=== PATIENT | male | born 1940 | race Caucasian/White ===

== ENCOUNTER 2023-12-15 18:22 | Emergency (ER) | payer OTHER, MEDICARE, SELFPAY ==
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
--- NOTE | ~2023-12-15 | CT_ITS ---
EXAMINATION: CT cervical spine wo con DATE: 12/15/2023 20:13 INDICATION: Neck pain TECHNIQUE: Computed tomography (CT) of the cervical spine was performed without intravenous contrast. The dose-length product (DLP) was 756.67 mGy-cm. Automated exposure control and iterative reconstruc tion technique were employed. COMPARISON: None FINDINGS: Bone alignment is normal. There is no fracture. There is moderate loss of intervertebral di sc space height at C5-6 and C6-7. The odontoid process is intact. There is moderate to severe osteoar thritis anteriorly at the atlantoaxial joint. There is multilevel severe facet and uncovertebral join t osteoarthritis. Prevertebral soft tissues are normal. IMPRESSION: 1. Moderate to severe cervical spondylosis without acute findings. Reviewed, dictated and finalized at location F.
--- NOTE | ~2023-12-15 | CT_ITS ---
EXAMINATION: CT brain wo con INDICATION: Head injury COMPARISON: None TECHNIQUE: Standard unenhanced head CT. The dose-length product (DLP) was 756.67 mGy-cm. The mA was a djusted according to patient size. Iterative reconstruction technique was employed. FINDINGS: No acute intraparenchymal hemorrhage. No evidence of mass lesion. No evidence of acute infa rction. There is mild periventricular and subcortical hypodensity probably related to small vessel is chemic disease. There is mild prominence of the sulci and ventricles related to cerebral atrophy. Int racranial calcified cerebral atherosclerosis is noted. No extra-axial collections. No mass effect or midline shift. The orbits and soft tissues are unremarkable. The visualized sinuses and mastoid air c ells are well aerated. IMPRESSION: 1. No acute intracranial abnormality. 2. Age related findings. Reviewed, dictated and finalized at location F.
[2023-12-15 18:30] VITALS: BP 151/87; PULSE 79; RESP 16; TEMP 36.6; O2SAT 97
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
[2023-12-15] MEDS: ACETAMINOPHEN 500 MG TABLET 1000 MG PO (19:14)
[2023-12-15 19:23] VITALS: BP 131/85; PULSE 71; RESP 15; O2SAT 98
[2023-12-15 19:24] LABS: Basophils Percent Auto 0.3 % (0.2-1.2); Eosinophils Absolute Auto 0.1 K/mm3 (0-0.3); Eosinophils Percent Auto 0.5 % (0-4.4); Hematocrit 43.4 % (42.0-52.0); Immature Granulocyte Absolute 0.07 K/mm3 (0.00-0.031); Immature Granulocyte Percent A 0.7 % (0-0.5); Lymphocytes Absolute Auto 0.95 K/mm3 (0.9-3.2); Mean Corpuscular HGB Conc 34.6 g/dl (32-36); Mean Corpuscular Hemoglobin 29.7 pg (26-34); Mean Corpuscular Volume 85.9 fl (80-100); Mean Platelet Volume 11.5 fl (7.4-10.4); Monocytes Absolute Auto 0.6 K/mm3 (0.1-0.6); Monocytes Percent Auto 5.8 % (2.6-8.5); Neutrophils Absolute Auto 8.9 K/mm3 (1.3-6.7); Neutrophils Percent Auto 83.7 % (45.5-73.1); Platelet Count Result 158 k/mm3 (150-375); Red Blood Count 5.05 M/mm3 (4.6-6.20); Red Cell Distribution Width 13.9 % (11.5-14.5); White Blood Count 10.6 K/mm3 (4.5-10.0)
[2023-12-15 19:30] LABS: Alanine Aminotransferase 21 U/L (6-50); Albumin Level 4.3 g/dL (3.5-5.1); Alkaline Phosphatase 54 U/L (38-126); Anion Gap 8 mmol/L (8-16); Aspartate Amino Transferase 28 U/L (17-59); Bilirubin,Total 0.9 mg/dL (0.2-1.3); Blood Urea Nitrogen 23 mg/dL (9-20); Calcium 9.3 mg/dL (8.4-10.2); Carbon Dioxide 25 mmol/L (22-30); Chloride 107 mmol/L (98-107); Estimated CRCL calculation 55 ml/min; Estimated Glomerular Filt Rate > 60; Glucose 95 mg/dL (65-110); Potassium 3.6 mmol/L (3.4-5.0); Sodium 140 mmol/L (137-145)
[2023-12-15] MEDS: TETANUS,DIPHTHERIA,AC PERTUSSIS ADULT (0.5 ML) BOOSTRIX IM (19:30)
[2023-12-15 21:48] VITALS: BP 137/82; PULSE 79; RESP 20; O2SAT 98
[2023-12-15] MEDS: MORPHINE SULFATE (*CRX) 4 MG/ML INJ IV PUSH (22:54)
[2023-12-15 23:02] VITALS: BP 160/80; PULSE 63; RESP 17; O2SAT 94
== END 2023-12-15 23:04 | disposition short-term general hospital (02) ==
PROVIDERS: Emergency Provider Physician Assistant; PCP Family Medicine Adolescent Medicine
DX: S22.43XA Multiple fractures of ribs, bilateral, initial encounter for closed fracture (principal); Z23 Encounter for immunization; I10 Essential (primary) hypertension; Z85.46 Personal history of malignant neoplasm of prostate; Z87.891 Personal history of nicotine dependence; M47.812 Spondylosis without myelopathy or radiculopathy, cervical region; V23.49XA Other motorcycle driver injured in collision with car, pick-up truck or van in traffic accident, initial encounter
CPT/HCPCS: 36415; 70450; 71260; 72125; 74177; 80053; 85025; 90471; 90715; 96372; 96374; 99284; 99285; A9270; J2270; Q9967

== ENCOUNTER 2024-11-26 14:27 | Emergency (ER) | payer MEDICARE, SELFPAY ==
[2024-11-26 14:32] VITALS: BP 134/81; PULSE 81; RESP 16; TEMP 36.6; O2SAT 99
[2024-11-26 15:11] LABS: Alanine Aminotransferase 15 U/L (6-50); Albumin Level 4.5 g/dL (3.5-5.1); Alkaline Phosphatase 70 U/L (38-126); Anion Gap 13 mmol/L (4-12); Aspartate Amino Transferase 17 U/L (17-59); Bilirubin,Total 1.2 mg/dL (0.2-1.3); Blood Urea Nitrogen 16 mg/dL (9-20); Calcium 9.6 mg/dL (8.4-10.2); Carbon Dioxide 19 mmol/L (22-30); Chloride 106 mmol/L (98-107); Estimated CRCL calculation 62 ml/min; Estimated Glomerular Filt Rate > 60; Glucose 108 mg/dL (65-110); Lipase 89 U/L (23-300); Sodium 138 mmol/L (137-145)
[2024-11-26 15:19] LABS: Basophils Absolute Auto 0.1 K/mm3 (0.0-0.1); Basophils Percent Auto 0.4 % (0.2-1.2); Eosinophils Absolute Auto 0.1 K/mm3 (0-0.3); Hematocrit 42.5 % (42.0-52.0); Hemoglobin 15.1 g/dL (14.0-18.0); Immature Granulocyte Absolute 0.05 K/mm3 (0.00-0.031); Immature Granulocyte Percent A 0.4 % (0-0.5); Lymphocytes Percent Auto 13.5 % (18.3-44.2); Mean Corpuscular HGB Conc 35.5 g/dl (32-36); Mean Corpuscular Hemoglobin 29.5 pg (26-34); Mean Platelet Volume 11.2 fl (7.4-10.4); Monocytes Absolute Auto 0.8 K/mm3 (0.1-0.6); Monocytes Percent Auto 6.4 % (2.6-8.5); Neutrophils Absolute Auto 9.9 K/mm3 (1.3-6.7); Neutrophils Percent Auto 78.3 % (45.5-73.1); Platelet Count Result 276 k/mm3 (150-375); Red Blood Count 5.12 M/mm3 (4.6-6.20); Red Cell Distribution Width 13.6 % (11.5-14.5); White Blood Count 12.6 K/mm3 (4.5-10.0)
[2024-11-26 15:21] LABS: Add Urine Microscopic? YES; Appearance Urine Clear (Clear); Bacteria Urine None Seen /hpf; Bilirubin Urine 1+ (Negative); Blood Urine Negative (Negative); Color Urine Dark Yellow (Yellow); Glucose Urine UA Negative (Negative); Ketones Urine Trace mg/dL (Negative); Leukocyte Esterase Ur Negative LEU/UL (Negative); Need Manual Microscopic Reviewed; Nitrate Urine Negative (Negative); Protein Urine Trace mg/dL (Negative); RBC Urine 0-2 /hpf (0-2); Specific Grav Ur 1.022 (1.001-1.035); Squamous Epithelial Cell Urine None Seen /hpf (Few); WBC Urine 0-5 /hpf (0-3)
--- NOTE | 2024-11-26 17:53 | ED.ABDPAIN ---
HPI - Abdominal Pain General Chief Complaint: Abdominal Pain Stated Complaint: abd pain Time Seen by Provider: 11/26/24 14:34 History of Present Illness HPI narrative: Patient is an 84-year-old male with history of diverticulitis who presents ER with right-sided lower abdominal pain. Worsening over last couple days. Referred here from urgent care. Currently on amoxicillin for respiratory infection. No current cough or dyspnea. No fevers or chills or sweats. Denies diarrhea or vomiting. Related Data Home Medications ?Medication ?Instructions ?Recorded ?Confirmed ?Last Taken ?Type bicalutamide 50 mg tablet (Casodex) 50 mg PO DAILY 05/03/23 07/13/24 Unknown History Allergies Allergy/AdvReac Type Severity Reaction Status Date / Time adhesive tape Allergy Mild rash Verified 07/13/24 12:51 Review of Systems Review of Systems: All systems reviewed & are unremarkable except as noted in HPI and below Constitutional: Constitutional: Reports no additional constitutional complaints Cardiovascular: Cardiovascular: Reports no additional cardiovascular complaints Respiratory: Respiratory: Reports no additional respiratory complaints Gastrointestinal: Gastrointestinal: Reports no additional gastrointestinal complaints [facility] Past Medical History Medical History (Updated 11/26/24 @ 18:25 by Jason Bruce MD) Diverticulitis Malignant neoplasm of prostate Essential (primary) hypertension Surgical History Surgical History History of right inguinal hernia repair 2003 Family History Family History Father Lung cancer Heart disease Social History Social History Smoking packs per day: 2 Smoking cigarettes per day: 40.0 Years smoked: 25 Smoking pack-years: 50.00 Smoking status: Former smoker Tobacco type: cigarettes Second hand tobacco smoke exposure: No Smoking end date: 09/27/94 Alcohol intake: current Alcohol use details: socially Substance use: never Substance use type: does not use Living arrangements: with family Occupation/Education: occupation Gender identity (if verbalized by the patient): Male Sexual Orientation (if Verbalized by the Patient): Straight or Heterosexual Spiritual care concerns: No Agree to blood products: Yes Exam Narrative: GENERAL: Well-appearing, well-nourished, and in no acute distress. HEAD: Normocephalic, atraumatic. ENT: Mucous membranes moist. CHEST: Clear to auscultation. No respiratory distress. HEART: Regular rate and rhythm. Normal peripheral pulses. ABDOMEN: Soft, TTP RLQ with guarding, nondistended. EXTREMITIES: Normal range of motion. No edema. SKIN: Warm, dry, no rash. NEURO: Alert and oriented x3. PSYCH: Normal mood and affect. Course Course Emergency Course: Imaging with diverticulitis, I suspect less likely mass given the extensive diverticula and the progression of his symptoms. Will start on oral antibiotics and have him follow-up with his PCP and potentially GI doctor. Patient verbalized understanding of diagnosis and treatment plan. Vital Signs Vital signs: Vital Signs Temperature 97.8 F 11/26/24 14:32 Pulse Rate 81 11/26/24 14:32 Respiratory Rate 16 11/26/24 14:32 Blood Pressure 134/81 11/26/24 14:32 Pulse Oximetry 99 11/26/24 14:32 Oxygen Delivery Room Air 11/26/24 14:32 Temperature 97.8 F 11/26/24 14:32 Pulse Rate 81 11/26/24 14:32 Respiratory Rate 16 11/26/24 14:32 Blood Pressure 134/81 11/26/24 14:32 Pulse Oximetry 99 11/26/24 14:32 Oxygen Delivery Room Air 11/26/24 14:32 MDM - Abdominal Pain Lab Data 11/26/24 14:53 11/26/24 14:53 Labs: Lab Results 11/26/24 Range/Units 14:53 WBC 12.6 H (4.5-10.0) K/mm3 RBC 5.12 (4.6-6.20) M/mm3 Hgb 15.1 (14.0-18.0) g/dL Hct 42.5 (42.0-52.0) % MCV 83.0 (80-100) fl MCH 29.5 (26-34) pg MCHC 35.5 (32-36) g/dl RDW 13.6 (11.5-14.5) % Plt Count 276 D (150-375) k/mm3 MPV 11.2 H (7.4-10.4) fl Immature Gran % (Auto) 0.4 (0-0.5) % Neut % (Auto) 78.3 H (45.5-73.1) % Lymph % (Auto) 13.5 L (18.3-44.2) % [place] % (Auto) 6.4 (2.6-8.5) % Eos % (Auto) 1.0 (0-4.4) % Baso % (Auto) 0.4 (0.2-1.2) % Lymph # (Auto) 1.70 (0.9-3.2) K/mm3 Morgan # (Auto) 0.8 H (0.1-0.6) K/mm3 Eos # (Auto) 0.1 (0-0.3) K/mm3 Baso # (Auto) 0.1 (0.0-0.1) K/mm3 Abs Immat Gran (auto) 0.05 H (0.00-0.031) K/mm3 Absolute Neuts (auto) 9.9 H (1.3-6.7) K/mm3 Absolute Nucleated RBC 0.000 (0.0-0.012) K/mm3 Nucleated RBC % 0.0 (0.0-0.2) % Sodium 138 (137-145) mmol/L Potassium 4.0 (3.4-5.0) mmol/L Chloride 106 (98-107) mmol/L Carbon Dioxide 19 L (22-30) mmol/L Anion Gap 13 H (4-12) mmol/L BUN 16 (9-20) mg/dL Creatinine 0.86 (0.7-1.3) mg/dL Estim Creat Clear Calc 62 ml/min Estimated GFR > 60 (59 - ) Glucose 108 (65-110) mg/dL Calcium 9.6 (8.4-10.2) mg/dL Total Bilirubin 1.2 (0.2-1.3) mg/dL AST 17 (17-59) U/L ALT 15 (6-50) U/L Alkaline Phosphatase 70 (38-126) U/L Total Protein 8.0 (6.3-8.2) g/dL Albumin 4.5 (3.5-5.1) g/dL Lipase 89 (23-300) U/L Urine Color Dark yellow (Yellow) Urine Appearance Clear (Clear) Urine pH 5.0 (5.0-9.0) Ur Specific [place] 1.022 (1.001-1.035) Urine Protein Trace (Negative) mg/dL Urine Glucose (UA) Negative (Negative) mg/dL Urine Ketones Trace H (Negative) mg/dL Ur Blood (Man) Negative (Negative) Urine Nitrate Negative (Negative) Urine Bilirubin 1+ H (Negative) Urine Urobilinogen 1.0 (<2.0) mg/dL Add Ur Microanalysis Reviewed Leukocyte Esterase Rfl Negative (Negative) LUL/UL Urine RBC 0-2 (0-2) /hpf Urine WBC 0-5 (0-3) /hpf Ur Squamous Epith Cells None seen (Few) /hpf Urine Bacteria None seen /hpf Urine Casts 6-10 Imaging Data Radiologist's impression: ITS Impressions Abdomen/Pelvis CT 11/26/24 17:56 IMPRESSION: 1. Highly suggestive diverticulitis of sigmoid colon. Possibility of a mass cannot be excluded. Further evaluation advised. 2. Multiple hypodensities in the liver unchanged from previous examination. 3. Small sliding hiatus hernia. Discharge Plan Discharge Clinical Impression: Diverticulitis Patient Disposition: Home, Self-Care Condition: Stable Instructions: Diverticulitis (ED) Additional Instructions: Return to the emergency department if you develop severe abdominal pain, severe nausea and vomiting to the point where you are unable to keep down fluids, if you develop chest pain or difficulty breathing, blood in your stool, dizziness or fainting, or if you develop any other new or concerning symptoms as these could be signs of more serious medical illness. Try to stay well hydrated. Patient Language: Danish Prescriptions: New ciprofloxacin HCl [Cipro] 500 mg tablet 500 mg PO Q12H Qty: 14 0RF metronidazole 500 mg tablet 500 mg PO Q8H Qty: 21 0RF No Action bicalutamide [Casodex] 50 mg tablet 50 mg PO DAILY acyclovir 400 mg tablet 400 mg PO TID Qty: 15 3RF lorazepam 1 mg tablet 2 mg PO QHS PRN (Reason: sleep) Qty: 60 5RF Follow-up/Referrals: Perry Oneal MD [Primary Care Provider] - 1 Week
[2024-11-26 18:40] VITALS: BP 137/82; PULSE 67; RESP 16; O2SAT 100
== END 2024-11-26 18:44 | disposition home or self-care (01) ==
PROVIDERS: Emergency Provider Emergency Medicine; PCP Family Medicine Adolescent Medicine
DX: K57.32 Diverticulitis of large intestine without perforation or abscess without bleeding (principal); I10 Essential (primary) hypertension; Z85.038 Personal history of other malignant neoplasm of large intestine; Z87.891 Personal history of nicotine dependence; K44.9 Diaphragmatic hernia without obstruction or gangrene
CPT/HCPCS: 36415; 74177; 80053; 81001; 83690; 85025; 99284; Q9967

== ENCOUNTER 2024-12-21 00:27 | Day surgery (SDC) | payer MEDICARE, SELFPAY ==
[2024-12-13 14:31] VITALS: BMI 27.6
--- OUTSIDE RECORDS SUMMARY | 2024-12-21 00:30 | XMS_ITS | Encounter Summary ---
Author Organization [facility] Address [address] [place] [address] Care Team Providers Care Municipal Clerk Name Role Phone Unavailable Primary Care Provider Unavailabl e Encounter Details Date Type Department Care Team (Late st Contact Info) Description 03/31/2019 Lab Requisition [facility] DermPath Lab [address] [place] [id number] Sterling Ribera MD [address] [place] [address] Social History Tobacco Use Types Packs/Day Years Used Date Smoking Tobacco: Never Assessed Sex and Gender Information Value Date Recorded Sex Assigned at Not on file Gender Identity Not on file Sexual Orientation Not on file documented as of this encounter Plan of Treatment Not on file documented as of this encounter Procedures Procedure Name Priority Date/Time Associated Diagnosis Comments DERMATOPATHOLOGY Routine 03/29/2019 12:0 0 AM CDT documented in this encounter Results * DERMATOPATHOLOGY (03/29/2019 12:00 AM CDT) Case Report Dermatopathology Report Case: [id number] Authorizing Provider: Sterling Ribera MD Collected: 03/29/2019 12:00 AM Pathologist: Marilu Coleman MD Received: 03/31/2019 12:54 PM Specimen: Skin, right paranasal skin 9 11:15 AM CDT DERMATOPATHOLOGY LABORATORY Final Diagnosis Specimen A. 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 11:15 AM CDT DERMATOPATHOLOGY LABORATORY Gross Description Specimen A: Received is one formalin filled container labeled with the patient's name and designated right paranasal skin. The specimen consists of a shave biopsy measuring 9x3q1ab, bisected. Jar 0. 11:15 AM T DERMATOPATHOLOGY LABORATORY Microscopic Description Specimen A. SKIN, right paranasal skin: The epidermis shows parakeratosis, full thickness disorderly maturation of keratinocytes, mitoses at different levels, and dyskeratotic cells. 11:15 AM CDT DERMATOPATHOLOGY LABORATORY Disclaimer An external and internal positive and negative controls are appropriate for the histochemical, immunohistochemical and immunofluorescence stain(s) in this case (if any), except where stated explicitly. The performance characteristics of the stain(s) cited in this report were developed and its performance characteristic determined by the Dermatopathology Laboratory at [facility], directed by Dr. Delmar Lloyd. These tests need not be, and therefore are not, approved by the [place] Food and Drug Administration. The tests are used for clinical purposes. Billing Codes Specimen Charges Stain Charges 90776 1 11:15 AM CDT DERMATOPATHOLOGY LABORATORY Embedded Images 11:15 AM CDT DERMATOPATHOLOGY LABORATORY Pathology/Cytolog y TISSUE SPECIMEN FROM SKIN / Unknown 03/29/2019 03/31/2019 12:54 PM CDT Sterling Ribera MD LAB - PATHOLOGY/CYTO LOGY ORDERABLES DERMATOPATHOLOGY LABORATORY [facility] - Department of Dermatology [address] [place] [address], [address] [place] [address], [facility] [phone] documented in this encounter Visit Diagnoses Not on filedocumented in this encounter
--- OUTSIDE RECORDS SUMMARY | 2024-12-21 00:30 | XMS_ITS | Encounter Summary ---
Author Organization [facility] Address [address] [place] [address] Care Team Providers Care Package Checker Name Role Phone Unavailable Primary Care Provider Unavailabl e Encounter Details Date Type Department Care Team (Late st Contact Info) Description 04/04/2020 Lab Requisition [facility] DermPath Lab [address] [place] [phone] Sterling Ribera MD [address] [place] [address] Social History Tobacco Use Types [...] Priority Date/Time Associated Diagnosis Comments DERMATOPATHOLOGY Routine 04/03/2020 12:0 0 AM CDT documented in this encounter Results * DERMATOPATHOLOGY (04/03/2020 12:00 AM CDT) Case Report Dermatopathology Report Case: [id number] Authorizing Provider: Sterling Ribera MD Collected: 04/03/2020 12:00 AM Ordering Location: [facility] DermPath Lab Received: 04/04/2020 11:31 AM Pathologist: Maria Esther Lloyd MD Specimen: Skin, right lateral chest wall 0 4:24 PM CDT DERMATOPATHOLOGY LABORATORY Final Diagnosis Specimen A. SKIN, right lateral chest wall: LICHEN PLANUS-LIKE KERATOSIS (BENIGN LICHENOID KERATOSIS) (L82.1) POST-INFLAMMATORY PIGMENT ALTERATION (L81.9) 0 4:24 PM CDT DERMATOPATHOLOGY LABORATORY Clinical History R/O BCC, traumatized nevus vs ISK. 0 4:24 PM CDT DERMATOPATHOLOGY LABORATORY Gross Description Specimen A: Received is one formalin filled container labeled with the patient's name and designated right lateral chest wall. The specimen consists of a shave biopsy measuring 1f7w8ha. Jar 0. 0 4:24 PM CDT DERMATOPATHOLOGY LABORATORY Microscopic Description Specimen A. SKIN, right lateral chest wall: The epidermis is mildly acanthotic. There is a lichenoid infiltrate with vacuolar changes of basilar keratinocytes and scattered necrotic keratinocytes. Sections show abundant melanin within melanophages around the superficial vascular plexus. 0 4:24 PM CDT DERMATOPATHOLOGY LABORATORY Disclaimer An external and internal positive and negative controls are appropriate for the histochemical, immunohistochemical and immunofluorescence stain(s) in this case (if any), except where stated explicitly. The performance characteristics of the stain(s) cited in this report were developed and its performance characteristic determined by the Dermatopathology Laboratory at [facility], directed by Dr. Delmar Lloyd. These tests need not be, and therefore are not, approved by the [place] Food and Drug Administration. The tests are used for clinical purposes. Billing Codes Specimen Charges Stain Charges 57120 1 0 4:24 PM CDT DERMATOPATHOLOGY LABORATORY Embedded Images 0 4:24 PM CDT DERMATOPATHOLOGY LABORATORY Pathology/Cytolog y TISSUE SPECIMEN FROM SKIN / Unknown 04/03/2020 04/04/2020 11:31 AM CDT Sterling Ribera MD LAB - PATHOLOGY/CYTO LOGY ORDERABLES DERMATOPATHOLOGY LABORATORY [facility] - Department of Dermatology Medical Imaging Technologist [place]/[address] [phone] documented in this encounter Visit Diagnoses Not on filedocumented in this encounter
--- OUTSIDE RECORDS SUMMARY | 2024-12-21 00:31 | XMS_ITS | Referral Summary ---
Author Organization [facility] Address [address] [place] [address] Phone Care Team Providers Care Manufacturing Sr Engineer Name Role Phone Perry Oneal MD Primary Care Prov ider Encounters Date Type Department Care Team Description 11/28/2024 7:45 AM NUT PACKER Lab [facility] - Lab Collection [address] [facility] Floor [address] [place] [address] Malignant neoplasm of prostate (HCC) 11/28/2024 9:45 AM NUT PACKER Infusion [facility] - Infusion [address] [facility] [address] 5 [place] [address] Malignant neoplasm of prostate (HCC) (Primary Dx); Osteopenia of multiple sites 11/28/2024 8:45 AM NUT PACKER Office Visit [facility] [address] [facility] Floor 5 [place] [id number] Stefano Erickson MD Malignant neoplasm of prostate (HCC) (Primary Dx) 11/20/2024 Results Follow-Up [facility] at [address] [phone] Osiris Calles NP 11/20/2024 10:23 AM NUT PACKER - 11/20/2024 11:59 PM NUT PACKER Hospital Encounter [id number] [place] [address] Flu-like symptoms Discharge Disposition: Discharge to home or self care 11/20/2024 10:20 AM NUT PACKER Ancillary Procedure [facility] at [address] [phone] Flu-like symptoms 11/20/2024 12:15 PM NUT PACKER Office Visit [facility] at [address] [phone] Osiris Calles NP Flu-like symptoms (Primary Dx) from Last 3 Months Allergies Active Allergy Reactions Criticality Noted Date Comments Adhesive Tape-Silicones Medications leuprolide, 3 month, (LUPRON) 22.5 mg injectionIndicatio ns:Malignant neoplasm of prostate (HCC) Inject into the shoulder, thigh, or buttocks. 05/18/20 12 Active LORazepam (ATIVAN) 1 mg tablet 3 05/09/20 18 Active cholecalciferol (cholecalciferol) 25 mcg (1,000 unit) tablet Take 1 tablet (1,000 Units total) by mouth daily 30 tablet 11 07/04/20 20 Active calcium carbonate 500 mg calcium (1,250 mg) capsule Take 1 capsule (1,250 mg total) by mouth 2 (two) times a day with meals 60 capsule 11 09/26/20 20 Active Additional Information Patient not taking.Reported on 11/20/2024 Lumigan 0.01 % ophthalmic drops 03/24/20 23 Active lansoprazole (PREVACID SOLUTAB) 15 mg disintegrating tablet Take 1 tablet (15 mg total) by mouth daily Active alendronate (FOSAMAX) 70 mg tabletIndications: Osteopenia of multiple sites,Malignant neoplasm of prostate (HCC) Take 1 tablet (70 mg total) by mouth every 7 days Take in the morning with a full glass of water, on an empty stomach, and do not take anything else by mouth or lie down for the next 30 min. 12 tablet 3 11/01/19 24 Active cyclobenzaprine (FLEXERIL) 10 mg tabletIndications: Traumatic pain Take 1 tablet (10 mg total) by mouth 3 (three) times a day as needed for muscle spasms for up to 10 days 30 tablet 12/16/19 24 Active polyethylene glycol (MIRALAX) 17 gram/dose bulk powder Take 17 g by mouth daily for 10 days 170 g 12/16/19 24 Active bicalutamide (CASODEX) 50 mg tabletIndications: metastatic prostate carcinoma Take 1 tablet (50 mg total) by mouth daily 90 tablet 3 08/21/20 24 025 Active ciprofloxacin (CIPRO) 500 mg tablet Take 1 tablet (500 mg total) by mouth 2 (two) times a day 11/28/19 Active celecoxib (CeleBREX) 200 mg capsuleIndications :Traumatic pain Take 1 capsule (200 mg total) by mouth 2 (two) times a day for 10 days 20 capsule 12/16/19 24 025 Discontinu ed(Patient Reported) amoxicillin-clavul anate (Augmentin) 875-125 mg per tablet Take 1 tablet by mouth 2 (two) times a day for 7 days 14 tablet 11/20/19 25 025 Active Problems Problem Noted Date Diagnosed Date Multiple fractures of ribs, right side, initial encounter for closed fracture 12/16/2023 Atherosclerosis of aorta 09/01/2023 Malignant neoplasm of prostate 01/20/2018 Osteopenia of multiple sites 01/20/2018 Superficial laceration 05/06/2016 Overview (12/31/2016): Superficial laceration Laceration of finger 05/06/2016 Overview (01/01/2017): Laceration of finger without foreign body without damage to nail, initial encounter Resolved Problems Problem Noted Date Diagnosed Date Resolved Date Need for prophylactic vaccin ation and inoculation against influenza 07/08/2023 07/08/2023 Immunizations Immunization Administration Dates Next Due Influenza, Trivalent, High D ose, Split, Preservative Free, Intramuscular 07/15/2017,08/21/2014 Influenza, Trivalent, IM (MDV) 07/25/2012 Influenza, Trivalent, Preservative Free, Intramu scular 07/17/2010 Moderna SARS-CoV-2 Monovalent Vaccination (12+ Y RS) 12/03/2020,10/30/2020 Pfizer Sars-Cov-2 Bivalent Vaccination (12+ YRS) 07/30/2022 Tdap 06/04/2020,05/06/2016 Social History Tobacco Use Types Packs/Day Years Used Date Smoking Tobacco: Former Smokeless Tobacco: Former Tobacco Cessation:Counseling Given: Not Answered Hunger Vital Sign Answer Date Recorded Within the past 12 months, y ou worried that your food would run out before you got the money to buy more. Never true 12/30/19 24 Within the past 12 months, t he food you bought just didn't last and you didn't have money to get more. Never true 12/30/2023 Personal Safety Answer Date Recorded Have you ever been in or are you currently in a harmful physical or emotional relationship or is someone making you feel afraid or unsafe? Denies 12/16/2023 Sex and Gender Information Value Date Recorded Sex Assigned at Not on file Legal Sex Male 4:11 AM NUT PACKER Gender Identity Male 05/27/2018 9:40 AM CDT Sexual Orientation Not on file Last Filed Vital Signs Vital Sign Reading Time Taken Comments Blood Pressure 119/71 11/28/2024 8:34 AM NUT PACKER Pulse 72 11/28/2024 8:34 AM NUT PACKER Temperature 36.4 C (97.5 F) 11/28/2024 8:34 AM NUT PACKER Respiratory Rate 18 11/28/2024 8:34 AM NUT PACKER Oxygen Saturation 98% 11/28/2024 8:34 AM NUT PACKER Inhaled Oxygen Concentration - - Weight 91.4 kg (201 lb 9.6 oz) 11/28/2024 8:34 A M NUT PACKER Height 180.3 cm (5' 11 ) 11/20/2024 10:10 AM NUT PACKER Body Mass Index 28.12 11/20/2024 10:10 AM NUT PACKER Plan of Treatment Not on file Procedures Procedure Name Priority Date/Time Associated Diagnosis Comments EGFR STAT 11/28/2024 8:21 AM NUT PACKER Malignant neoplasm of prostate (HCC) DIFFERENTIAL AUTO Routine 11/28/2024 8:2 1 AM NUT PACKER Malignant neoplasm of prostate (HCC) LACTATE DEHYDROGENASE Routine 11/28/2024 8:21 AM NUT PACKER Malignant neoplasm of prostate (HCC) CBC WITH AUTO DIFFERENTIAL Routine 11/28/2024 8:21 AM NUT PACKER Malignant neoplasm of prostate (HCC) COMPREHENSIVE METABOLIC PANEL STAT 11/28/2024 8:21 AM NUT PACKER Malignant neoplasm of prostate (HCC) PSA DIAGNOSTIC Routine 11/28/2024 8:21 AM NUT PACKER Malignant neoplasm of prostate (HCC) XR CHEST PA LATERAL 2 VIEWS Schedule SUJEY, Read SUJEY (Appt Today, Awaiting Results) 11/20/2024 10:23 AM NUT PACKER Flu-like symptoms INFLUENZA A/B, RSV, AND COVID-19 PCR Routine 11/20/2024 10:23 AM NUT PACKER Flu-like symptoms CT CHEST ABDOMEN PELVIS W CONTRAST Schedule Routine, Read Routine (OP Routine) 06/07/2024 9:42 AM CDT Malignant neoplasm of prostate (HCC) from Last 3 Months or Most Recently Relevant to Health Maintenance Results * eGFR (11/28/2024 8:21 AM NUT PACKER) eGFR 74 >=60 mL/min/1. 73 m2 Comment: Interpretive Data Reference Interval Normal >/= 90 mL/min/1.73m2 Mildly decreased* 60 - 89 mL/min/1.73m2 Mildly to moderately decreased 45 - 59 mL/min/1.73m2 Moderately to severely decreased 30 - 44 mL/min/1.73m2 Severely decreased 15 - 29 mL/min/1.73m2 Kidney Failure < 15 mL/min/1.73m2 *Relative to young adult level Estimated glomerular filtration rate is determined by the 2020 CKD-EPI equation recommended by the National Kidney Foundation (A Unifying Approach to GFR Estimation: Recommendations of the NKF-ASK Task Force on Reassessing the Inclusion of Race in Diagnosing Kidney Disease, JASN 202). The CKD-EPI equation should not be used for patients with unstable renal function and has not been validated in children and those over 70. Current interpretive data was last reviewed 2021. Blood 11/28/2024 8:21 AM NUT PACKER 11/28/2024 8:25 AM NUT PACKER us Stefano Erickson MD LAB BLOOD ORDERABLES Final Resul t [facility] Department [place] [address] * (ABNORMAL) Differential, auto (11/28/2024 8:21 AM NUT PACKER) Neutrophil abs 6.9(H) 1.5 - 6.5 K/cumm Comment:Testing performed by : [facility], [address] [place] [phone] Lymphocyte abs 1.0 0.8 - 3.3 K/cumm CERNER BJ Comment:Testing performed by : [facility], [address] [place] [phone] Monocyte abs 0.6 0.2 - 0.8 K/cumm CERNER BJ Comment:Testing performed by : [facility], [address] [place] [phone] Eosinophil abs 0.1 0.0 - 0.5 K/cumm CERMI BJ Comment:Testing performed by : [facility], [address] [place] [phone] Basophil abs 0.1 0.0 - 0.1 K/cumm [facility]ERNER BJ Comment:Testing performed by : [facility], [address] [place] [phone] Neutrophil pct 79.0 % [facility]ER BJ Comment: Interpretive Data Percent cell count reference ranges are not reported, since discordance with absolute values may lead to misinterpretation of CBC data. Current Interpretive Data was last revised on 2018. Testing performed by: [facility], [address] [place] [phone] Lymphocyte pct 11.6 % [facility]ER BJ Comment: Interpretive Data Percent cell count reference ranges are not reported, since discordance with absolute values may lead to misinterpretation of CBC data. Current Interpretive Data was last revised on 2018. Testing performed by: [facility], [address] [place] [phone] Monocyte pct 7.4 % C[facility]ER BJ Comment: Interpretive Data Percent cell count reference ranges are not reported, since discordance with absolute values may lead to misinterpretation of CBC data. Current Interpretive Data was last revised on 2018. Testing performed by: [facility], [address] [place] [phone] Eosinophil pct 1.3 % [facility] Comment: Interpretive Data Percent cell count reference ranges are not reported, since discordance with absolute values may lead to misinterpretation of CBC data. Current Interpretive Data was last revised on 2018. Testing performed by: [facility], [address] [place] [address] Basophil pct 0.7 % [facility] Comment: Interpretive Data Percent cell count reference ranges are not reported, since discordance with absolute values may lead to misinterpretation of CBC data. Current Interpretive Data was last revised on 2018. Testing performed by: [facility], [address] [place] [phone] Blood 11/28/2024 8:21 AM NUT PACKER 11/28/2024 8:24 AM NUT PACKER us Stefano Erickson MD LAB BLOOD ORDERABLES Final Resul t [facility] Department of Laboratories [place], [place] [id number] * CBC with auto differential (11/28/2024 8:21 AM NUT PACKER) WBC 8.7 3.8 - 9.9 K/cumm Comment:Testing performed by : [facility], [address] [place] [address] Hgb 14.1 13.0 - 17.5 g/dL [facility] Comment:Testing performed by : [facility], [address] [place] [address] Hct 40.7 38.9 - 50.3 % [facility] Comment:Testing performed by : [facility], [address] [place] [address] Plt 230 150 - 400 K/cumm [facility] Comment:Testing performed by : [facility], [address] [place], [place] [phone] MPV 9.1 6.8 - 10.4 fL [facility] Comment:Testing performed by : [facility], [address] [place], [place] [phone] RBC 4.83 4.30 - 5.80 M/cumm [facility] Comment:Testing performed by : [facility], [address] [place], [place] [phone] MCV 84.3 81.3 - 96.4 fL [facility] Comment:Testing performed by : [facility], [address] [place], [place] [phone] MCH 29.2 27.1 - 33.3 pg [facility] Comment:Testing performed by : [facility], [address] [place] [address] MCHC 34.6 32.3 - 35.7 g/dL [facility] Comment:Testing performed by : [facility], [address] [place], [place] [phone] RDW CV 14.5 11.1 - 14.9 % [facility] Comment:Testing performed by : [facility], [address] [place], [place] [phone] NRBC abs 0.00 0.00 - 0.01 K/cumm [facility] Comment:Testing performed by : [facility], [address] [place] [address] Blood 11/28/2024 8:21 AM NUT PACKER 11/28/2024 8:24 AM NUT PACKER us Stefano Erickson MD LAB BLOOD ORDERABLES Final Resul t [facility] Department [place] [address] * PSA diagnostic (11/28/2024 8:21 AM NUT PACKER) PSA-Total <0.02 <=6.20 ng/mL Comment: Interpretive Data AGE SEX REFERENCE INTERVAL 0 minutes-150 years Female None 0 minutes-49 years Male None 50-59 years Male 0-3.90 60-69 years Male 0-5.40 70-79 years Male 0-6.20 80-150 years Male 0-6.20 The Gini PSA Total assay procedure was used. Results from different manufacturers or methods may not be comparable. Serial testing should be performed using the same method. Current interpretive data last revised 22. Blood 11/28/2024 8:21 AM NUT PACKER 11/28/2024 8:25 AM NUT PACKER Stefano Erickson MD LAB BLOOD ORDERABLES Final Resul t Performing Organization Address City[facility] Co de Phone Number [facility] [place] [address] * Lactate dehydrogenase (LD) (11/28/2024 8:21 AM NUT PACKER) Lactate dehydrogenase (LDH) 152 100 - 250 Units/L Blood 11/28/2024 8:21 AM NUT PACKER 11/28/2024 8:25 AM NUT PACKER Stefano Erickson MD LAB BLOOD ORDERABLES Final Resul t Performing Organization Address [facility] de Phone Number [facility] [place] [address] * Comprehensive metabolic panel (11/28/2024 8:21 AM NUT PACKER) Sodium 142 135 - 145 mmol/L Potassium, pl 4.1 3.3 - 4.9 mmol/L [facility] Chloride 107 97 - 110 mmol/L [facility] CO2 27 22 - 32 mmol/L [facility] Anion gap 8 2 - 15 mmol/L [facility] BUN 18 6 - 25 mg/dL [facility] Creatinine 1.01 0.80 - 1.30 mg/dL [facility] Glucose 94 70 - 199 mg/dL [facility] Comment: Interpretive Data Fasting glucose >/= 126 mg/dl is diagnostic for diabetes. Fasting is defined as no caloric intake for at least 8 hours. Fasting glucose between 100 mg/dl to 125 mg/dl is diagnostic of prediabetes. In a patient with classic symptoms of hyperglycemia or hyperglycemic crisis, a random glucose >/= 200 mg/dl is diagnostic for diabetes. In the absence of unequivocal hyperglycemia, results should be confirmed by repeat testing. The classification and Diagnosis of Diabetes Diabetes Care 2021; 46: S19-S40. Current interpretive data was last revised 2022. Calcium 9.4 8.5 - 10.3 mg/dL [facility] Bilirubin, total 0.6 0.1 - 1.2 mg/dL [facility] Protein, pl 7.1 6.5 - 8.5 g/dL [facility] Albumin 4.0 3.5 - 5.0 g/dL [facility] Alk phos 57 40 - 130 Units/L [facility] ALT 9 7 - 55 Units/L [facility] AST 13 10 - 50 Units/L [facility] Blood 11/28/2024 8:21 AM NUT PACKER 11/28/2024 8:25 AM NUT PACKER us Stefano Erickson MD LAB BLOOD ORDERABLES Final Resul t [facility] Department [place] [address] * Influenza A/B, RSV, and COVID-19 PCR Nasopharyngeal (11/20/2024 10:23 AM NUT PACKER) Pathologist [facility] COVID-19 RNA Negative Negative [facility] Influenza A RNA [facility] Negative [facility] [place] Influenza B RNA Negative Negative [facility] [place] RSV RNA Negative Negative [facility] Comment: Interpretive data: Testing performed by [facility]. This test is performed using the [employer]) Xpert Xpress CoV-2/Flu/RSV plus assay. This is a multiplex, real-time reverse transcriptase PCR assay intended for the qualitative detection of nucleic acid from SARS-CoV-2, influenza A, influenza B, and respiratory syncytial virus. This assay has been cleared by the [place] Food and Drug administration. The performance characteristics have been verified by the [facility]. Results must be considered in the clinical context, and a negative result does not rule out infection. Interpretive Data last revised 2023 Nasopharyngeal 11/20/2024 10 :23 AM NUT PACKER 11/20/2024 3:22 PM NUT PACKER Narrative [facility] - 11/20/2024 4:32 PM NUT PACKER Is the Patient experiencing symptoms consistent with COVID?->Yes Osiris Calles NP LAB MI[facility]OLOGY - [facility] Final Result [facility] [address] [address] Department [place] [address] [facility] * XR Chest PA Lateral 2 Views (11/20/2024 10:23 AM NUT PACKER) Anatomical Region Laterality Modality Body, Chest N/A Digital Radiogra phy 11/20/2024 12:1 5 PM NUT PACKER Narrative 11/20/2024 12:17 PM NUT PACKER EXAM DESCRIPTION: XR CHEST PA LATERAL 2 VIEWS REASON FOR STUDY: cough Pt complains of cough x 8 days. No asthma,copd,heart disease. Hx prostate cancer. Former smoker quit 35 years ago smoked for 20 years 2 ppd. TECHNIQUE: Two views COMPARISON: 12/30/2023 FINDINGS: Heart size and vascularity appear normal. Aortic arch well-defined on the left. Perihilar interstitial densities with peribronchial thickening somewhat increased from previous concerning for developing peribronchial inflammatory change. No dense consolidation, effusion pneumothorax. Bony hypertrophic changes obscures the apices, noted along the thoracic spine and shoulders. IMPRESSION: Peribronchial inflammatory changes suspect. THIS IS AN ELECTRONICALLY VERIFIED FINAL REPORT 11/20/2024 12:17 PM - Electronically signed by Peter GREENE T: Report ID: [id number] Reading Location: [id number] Procedure Note Peter Bailon MD - 11/20/2024 EXAM DESCRIPTION: XR CHEST PA LATERAL 2 VIEWS REASON FOR STUDY: cough Pt complains of cough x 8 days. No asthma,copd,heart disease. Hx prostate cancer. Former smoker quit 35 years ago smoked for 20 years 2 ppd. TECHNIQUE: Two views COMPARISON: 12/30/2023 FINDINGS: Heart size and vascularity appear normal. Aortic arch well-defined on the left. Perihilar interstitial densities with peribronchial thickening somewhat increased from previous concerning for developing peribronchialinflammatory change. No dense consolidation, effusion pneumothorax. Bony hypertrophic changes obscures the apices, noted along the thoracicspine and shoulders. IMPRESSION: Peribronchial inflammatory changes suspect. THIS IS AN ELECTRONICALLY VERIFIED FINAL REPORT 11/20/2024 12:17 PM - Electronically signed by Peter Bailon M.D. RB T: Report ID: [id number] Reading Location: [place] [address] Osiris Calles NP IMG XR PROCEDURES Final Result * CT chest abdomen pelvis with contrast (06/07/2024 9:42 AM CDT) Anatomical Region Laterality Modality Body N/A Computed Tomogra phy 06/07/2024 10:4 5 AM CDT Impressions 06/07/2024 11:12 AM CDT 1. Stable appearance of multiple sclerotic lesions in the pelvis and thoracolumbar spine. No new lesion. 2. Sequela of prior trauma with healing fractures involving bilateral ribs, left T4 transverse process, the superior endplate of T3, and the sacrum. Dictated by: Elsy Kirkland MD The radiology attending physician has personally reviewed this study, and had reviewed and/or edited this written report and agrees with it. Electronically signed by: Tommy Banks M.D. Narrative 06/07/2024 11:12 AM CDT EXAMINATION: Computed tomography of the chest, abdomen and pelvis with intravenous contrast HISTORY: Prostate cancer, assess treatment response TECHNIQUE: Transaxial computed tomographic images of the chest, abdomen and pelvis were obtained with intravenous contrast according to the standard protocol after the uneventful administration of 70 mL Opti-Ray 350 intravenous contrast. COMPARISON: CT dated 12/15/2023 FINDINGS: Stable subcentimeter nodules throughout the right upper lobe are stable from 2017. Mild dependent and basilar atelectasis in both lungs. No pleural effusion or pneumothorax. The thoracic aorta is normal. The thyroid appears normal. Heart size is normal. Atherosclerotic calcifications of the coronary arteries. No pericardial effusion. Multiple hypoattenuating lesions in the liver, likely representing simple cysts or small hemangiomas. A lesion with peripheral nodular discontinuous enhancement in hepatic segment 7 likely represents a hemangioma. No suspicious hepatic lesion. The spleen, adrenal glands, gallbladder, and pancreas are normal. No biliary ductal dilatation. Small hiatal hernia. The kidneys enhance symmetrically. No hydronephrosis. The urinary bladder is normal. Prostatic calcifications. There is no abnormal wall thickening or dilatation of the bowel. Diverticulosis of the colon without diverticulitis. Normal appendix in the right lower quadrant. There is no free intraperitoneal fluid or gas. No abdominal or pelvic lymphadenopathy. Atherosclerotic calcification of the aortoiliac system. Unchanged mild dilation of the celiac axis dating to 2014. Sclerotic lesions in the pelvis and multiple thoracolumbar vertebral bodies are similar when compared to prior exam. There are multiple chronic bilateral rib fractures. Healing fracture of the left L4 transverse process. There are additional healing fractures of the superior endplate of T3 and the sacrum. Procedure Note Tommy Banks MD - 06/07/2024 EXAMINATION: Computed tomography of the chest, abdomen and pelvis with intravenous contrast HISTORY: Prostate cancer, assess treatment response TECHNIQUE: Transaxial computed tomographic images of the chest, abdomen and pelvis were obtained with intravenous contrast according to the standard protocol after the uneventful administration of 70 mL Opti-Ray 350 intravenous contrast. COMPARISON: CT dated 12/15/2023 FINDINGS: Stable subcentimeter nodules throughout the right upper lobe are stable from 2017. Mild dependent and basilar atelectasis in both lungs. No pleural effusion or pneumothorax. The thoracic aorta is normal. The thyroid appears normal. Heart size is normal. Atherosclerotic calcifications of the coronary arteries. No pericardial effusion. Multiple hypoattenuating lesions in the liver, likely representing simple cysts or small hemangiomas. A lesion with peripheral nodular discontinuous enhancement in hepatic segment 7 likely represents a hemangioma. No suspicious hepatic lesion. The spleen, adrenal glands, gallbladder, and pancreas are normal. No biliary ductal dilatation. Small hiatal hernia. The kidneys enhance symmetrically. No hydronephrosis. The urinary bladder is normal. Prostatic calcifications. There is no abnormal wall thickening or dilatation of the bowel. Diverticulosis of the colon without diverticulitis. Normal appendix in the right lower quadrant. There is no free intraperitoneal fluid or gas. No abdominal or pelvic lymphadenopathy. Atherosclerotic calcification of the aortoiliac system. Unchanged mild dilation of the celiac axis dating to 2014. Sclerotic lesions in the pelvis and multiple thoracolumbar vertebral bodies are similar when compared to prior exam. There are multiple chronic bilateral rib fractures. Healing fracture of the left L4 transverse process. There are additional healing fractures of the superior endplate of T3 and the sacrum. IMPRESSION: 1. Stable appearance of multiple sclerotic lesions in the pelvis and thoracolumbar spine. No new lesion. 2. Sequela of prior trauma with healing fractures involving bilateral ribs, left T4 transverse process, the superior endplate of T3, and the sacrum. Dictated by: Elsy Kirkland MD The radiology attending physician has personally reviewed this study, and had reviewed and/or edited this written report and agrees with it. Electronically signed by: Tommy Banks M.D. Stefano Erickson MD IMG CT PROCEDURES Final Result from Last 3 Months or Most Recently Relevant to Health Maintenance Insurance MEDICARE [facility] MEDICARE SUPPLEMENT MEDICARE FORMERLY [facility] MEDICARE BLUE CROSS MEDICARE SUPPLEMENT Advance Directives For more information, please contact: [phone] * Full Code (Latest Code Status on File) Date Activated Date Inactivated Comments 12/16/2023 2:08 AM 12/16/2023 5:30 PM Care Teams Manufacturing Sr Engineer Relationship Specialty Start Date End Date Perry Oneal MD [address] [place] [address] PCP - General 05/06/16
--- OUTSIDE RECORDS SUMMARY | 2024-12-21 00:31 | XMS_ITS | Clinical Summary ---
Author Organization [facility] Address [address] [place] [address] Care Team Providers Care Repairer Evaporator Name Role Phone Unavailable Primary Care Provider Unavailabl e Source Comments [facility],non-owned Affiliates and Associated Physician Practices is amultiple site organization consisting of ambulatory clinics and hospital sitesin [place] and [place]. This disclosure is being madepursuant to the Care Everywhere program and may not contain all information available regarding this patient. Last updated 18.[facility] Social History Tobacco Use Types Packs/Day Years Used Date Smoking Tobacco: Never Assessed Sex and Gender Information Value Date Recorded Sex Assigned at Not on file Gender Identity Not on file Sexual Orientation Not on file Plan of Treatment Health Maintenance Due Date Last Done Comments MEDICARE AWV 12 MONTHS 1942 DTAP/TDAP/TD VACCINES (1 - Tdap) 1961 PNEUMOCOCCAL VACCINE 50+ (1 of 1 - PCV) 1992 ZOSTER VACCINE (1 of 2) 1992 Respiratory Syncytial Virus (RSV) Vaccine Pt: or over 60 yrs (1 - 1-dose 75+ series) 2017 COVID-19 VACCINE ( - 2023-2 5 season) 2024 INFLUENZA VACCINE (#1) 2024 DEPRESSION SCREENING 09/27/2024 HEPATITIS B VACCINE Aged Out No longe r eligible based on patient's age to complete this topic HIB VACCINE Aged Out No longer eligi ble based on patient's age to complete this topic HPV VACCINE Aged Out No longer eligi ble based on patient's age to complete this topic MENINGOCOCCAL (Group B) VACC INE SHARED DECISION-MAKING Aged Out No longer eligibl e based on patient's age to complete this topic MENINGOCOCCAL GROUPS A/C/Y/W VACCINE Aged Out No longer eligible b ased on patient's age to complete this topic
--- OUTSIDE RECORDS SUMMARY | 2024-12-21 00:31 | XMS_ITS | Encounter Summary ---
Author Organization [facility] Address [address] [place] [address] Care Team Providers Care Pressure Vessel Inspector Name Role Phone Perry Oneal MD Primary Care Prov ider Encounter Details Date Type Department Care Team (Late st Contact Info) Description 11/20/2024 Results Follow-Up [facility] at [address] [address] Osiris Calles, JAI [address] [place] [address] [address] [place] [address] Social History Tobacco Use Types Packs/Day Years Used Date Smoking Tobacco: Former Smokeless Tobacco: Former Hunger Vital Sign Answer Date Recorded Within [...] on file Legal Sex Male 4:11 AM CHIEF ENGINEERING DIVISION Gender Identity Male 05/27/2018 9:40 AM CDT Sexual Orientation Not on file documented as of this encounter Miscellaneous Notes * Result Encounter Note - Osiris Calles NP - 11/20/2024 4:34 PM CST Please notify patient of negative covid-19, FLU and RSV results. If symptoms persist past 10-14 days or worsen at anytime follow up with the [facility] or your Primary Care Provider. F ENGINEERING DIVISION documented in this encounter Plan of Treatment Not on file documented as of this encounter Visit Diagnoses Not on filedocumented in this encounter Additional Health Concerns Infection Onset Date Last Indicated Resolved Time COVID: Suspected 11/20/2024 11/20/2024 11/20/2024 4:33 PM CHIEF ENGINEERING DIVISION documented as of this encounter Care Teams Pressure Vessel Inspector Relationship Specialty Start Date End Date Perry Oneal MD [address] [place] [address] PCP - General 05/06/16 documented as of this encounter
--- OUTSIDE RECORDS SUMMARY | 2024-12-21 00:31 | XMS_ITS | Continuity of Care Document ---
Author Organization [facility] Address [address] [place] [address] Phone Care Team Providers Care Kiln Furniture Caster Name Role Phone Renzo Marrufo Unavailable Unavailable Procedures Procedure Date Eye Exam & Treatment Refraction Eye Exam, New Patient Refraction Advance Directives Directive Yes / No Effective Date File Name No Information Encounters Encounter Description Practice Location Reason(s) For Visit Diagnoses Date Provider Providers Copied on Encounter [facility], [address] [place] [address] [address], [place], [place], [id number], tel:[phone] [facility] No Information 1-201 0 Krishnasamy Renzo. [address], [place], [address], [place]. tel:[phone] [facility], [address] [place] [address] [address], [place], [place], [id number], tel:[phone] [facility] No Information 9-200 9 Krishnasamy Renzo. [address] [facility] [address], [place], [address], [place]. tel:[phone] Family History Family Member Type Diagnosis Age At Onset No Information Payers Payer name Insurance type Covered constitution party ID Authoriza tion(s) [place] [id number] Social History Type Description Quantity Date Captured Comments Sex Male Smoking Status No Information Chief Complaint And Reason For Visit No Information Reason For Referral Reason For Referral No Information History Of Present Illness Encounter Date Complaint History Of Prese nt Illness No Information Functional Status Date Functional Assessmen t No Information Instructions Date Instruction Additional Infor mation No Information Assessments Type Assessment Date No Information Patient Care Teams Name Effective Dates (start - stop) Status Members No Information
--- OUTSIDE RECORDS SUMMARY | 2024-12-21 00:31 | XMS_ITS | Encounter Summary ---
Author Organization [facility] Healthcare Address [address] [place] [address] Care Team Providers Care Mig Welder Name Role Phone Perry Oneal MD Primary Care Prov ider Encounter Details Date Type Department Care Team (Late st Contact Info) Description 12/16/[address] [facility] Surgeon [address] [place] [address] Marilu Santiago MD [address] [facility] [address] [place], [place] [id number] Social History Tobacco Use Types Packs/Day Years Used Date Smoking Tobacco: Former Smokeless Tobacco: Former Personal Safety Answer Date Recorded Have you ever been in or are you currently in a harmful physical or emotional relationship or is someone making you feel afraid or unsafe? Denies 12/16/2023 Sex and Gender Information Value Date Recorded Sex Assigned at Not on file Legal Sex Male 4:11 AM VOCAL MUSIC TEACHER Gender Identity Male 05/27/2018 9:40 AM CDT Sexual Orientation Not on file documented as of this encounter Plan of Treatment Not on file documented as of this encounter Visit Diagnoses Not on filedocumented in this encounter Additional Health Concerns Infection Onset Date Last Indicated Resolved Time COVID: Suspected 11/20/2024 11/20/2024 11/20/2024 4:33 PM VOCAL MUSIC TEACHER documented as of this encounter Care Teams Mig Welder Relationship Specialty Start Date End Date Perry Oneal MD [address] [place] [address] PCP - General 05/06/16 documented as of this encounter
--- OUTSIDE RECORDS SUMMARY | 2024-12-21 00:31 | XMS_ITS ---
Author Organization [facility] Address [address] [place] [address] Phone Care Team Providers Care Energy And Conservation Technician Name Role Phone Perry Oneal MD Primary Care Prov ider Active Problems Problem Noted Date Diagnosed Date Multiple fractures of ribs, right side, initial encounter for closed fracture 12/16/2023 Atherosclerosis of aorta 09/01/2023 Malignant neoplasm of prostate 01/20/2018 Osteopenia of multiple sites 01/20/2018 Superficial laceration 05/06/2016 Overview (12/31/2016): Superficial laceration Laceration of finger 05/06/2016 Overview (01/01/2017): Laceration of finger without foreign body without damage to nail, initial encounter Current Treatment and Therapy Plans Casodex* Plan Start Date:08/28/2004 Plan Provider:Stefano Erickson MD Linked Problems Malignant neoplasm of prosta te (HCC) Treatment Medications Current Day (Day 1, Cycle 15 - Planned for 08/26/2018) bicalutamide (CASODEX) bicalutamide (CASODEX) 50 mg tablet denosumab (PROLIA) Injection* Plan Start Date:11/28/2024 Plan Provider:Stefano Erickson MD Linked Problems Malignant neoplasm of prosta te (HCC)Osteopenia of multiple sites Treatment Medications No medications scheduled. Leuprolide Every 3 Months - Prostate* Plan Start Date:03/10/2018 Plan Provider:Stefano Erickson MD Linked Problems Malignant neoplasm of prosta te (HCC) Treatment Medications Current Day (Day 1 , Cycle 31 - Planned for 02/20/2025) Next Day (Day 1, Cycle 32 - Planned for 05/15/2025) leuprolide (3 month) (ELIGARD)leuprolide (3 month) (LUPRON)leuprolide (ELIGARD) leuprolide (3 month) (ELIGARD) subcutaneous injection 22.5 mg leuprolide (3 month) (ELIGARD) subcutaneous injection 22.5 mg Past Treatment and Therapy Plans Oncology Supportive Care Plan Name Start Date Discontinue Date Treatment Medications Discontinue Reason Plan Provider ZOLEDRONIC ACID (ZOMETA) INFUSION 03/10/2018 03/10/2018 No medications scheduled. Therapy Complete Stefano Erickson MD Specialty Infusion Treatment Plan Name Start Date Discontinue Date Treatment Medications Discontinue Reason Plan Provider ZOLEDRONIC ACID (ZOMETA) INFUSION 03/10/2018 06/02/2018 No medications scheduled. Therapy Complete Stefano Erickson MD Lifetime Dose Tracking * Chemical Lifetime Dose Automatic Entry Manual Entr y DLP 1,522 mGycm 1,522 mGycm 0 mGycm Resolved Problems Problem Noted Date Diagnosed Date Resolved Date Need for prophylactic vaccin ation and inoculation against influenza 07/08/2023 07/08/2023
--- OUTSIDE RECORDS SUMMARY | 2024-12-21 00:31 | XMS_ITS | Clinical Summary ---
Author Organization [facility] Address [address] [place] [address] Phone Care Team Providers Care Supervisor Bakery Sanitation Name Role Phone Perry Oneal MD Primary Care Prov ider Allergies Active Allergy Reactions Criticality Noted Date [...] mouth 2 (two) times a day 11/28/19 25 Active celecoxib (CeleBREX) 200 mg capsuleIndications :Traumatic [...] ation and inoculation against influenza 07/08/2023 07/08/2023 Encounters Date Type Department Care Team Description 11/28/2024 9:45 AM VOCATIONAL TRAINING TEACHER Infusion [facility] - Infusion [address] [place] [address] Malignant neoplasm of prostate (HCC) (Primary Dx); Osteopenia of multiple sites 11/28/2024 8:45 AM VOCATIONAL TRAINING TEACHER Office Visit [facility] Oncology [address] [facility] Floor 5 [place] [address] Stefano Erickson MD Malignant neoplasm of prostate (HCC) (Primary Dx) 11/28/2024 7:45 AM VOCATIONAL TRAINING TEACHER Lab [facility] - Lab Collection [address] [place] [address] Malignant neoplasm of prostate (HCC) 11/20/2024 12:15 PM VOCATIONAL TRAINING TEACHER Office Visit [facility] Con[facility]ient [facility] at [address] [phone] Osiris Calles NP Flu-like symptoms (Primary Dx) 11/20/2024 10:23 AM VOCATIONAL TRAINING TEACHER - 11/20/2024 11:59 PM VOCATIONAL TRAINING TEACHER Hospital Encounter [address] [address] Flu-like symptoms Discharge Disposition: Discharge to home or self care 11/20/2024 10:20 AM VOCATIONAL TRAINING TEACHER Ancillary Procedure [facility] Imaging at [address] [phone] Flu-like symptoms 11/20/2024 Results Follow-Up [facility] at [address] [phone] Osiris Calles NP from Last 3 Months Immunizations Immunization Administration Dates Next Due Influenza, Trivalent, High D ose, Split, Preservative Free, Intramuscular 07/15/2017,08/21/2014 Influenza, Trivalent, IM (MDV) 07/25/2012 Influenza, Trivalent, Preservative Free, Intramu scular 07/17/2010 Moderna SARS-CoV-2 Monovalent Vaccination (12+ Y RS) 12/03/2020,10/30/2020 Pfizer Sars-Cov-2 Bivalent Vaccination (12+ YRS) 07/30/2022 Tdap 06/04/2020,05/06/2016 Medical History Medical History Date Comments Malignant neoplasm of prostate (HCC) Cancer, prostate Hypertension Hypertension Glaucoma Family History Relation Name Status Comments Brother Alive Father Mother Sister Alive Social History Tobacco Use Types Packs/Day Years [...] on file Legal Sex Male 4:11 AM VOCATIONAL TRAINING TEACHER Gender Identity Male 05/27/2018 9:40 AM CDT Sexual Orientation Not on file Obstetrics History Last Filed Vital Signs Vital Sign Reading Time Taken Comments Blood Pressure 119/71 11/28/2024 8:34 AM VOCATIONAL TRAINING TEACHER Pulse 72 11/28/2024 8:34 AM VOCATIONAL TRAINING TEACHER Temperature 36.4 C (97.5 F) 11/28/2024 8:34 AM VOCATIONAL TRAINING TEACHER Respiratory Rate 18 11/28/2024 8:34 AM VOCATIONAL TRAINING TEACHER Oxygen Saturation 98% 11/28/2024 8:34 AM VOCATIONAL TRAINING TEACHER Inhaled Oxygen Concentration - - Weight 91.4 kg (201 lb 9.6 oz) 11/28/2024 8:34 A M VOCATIONAL TRAINING TEACHER Height 180.3 cm (5' 11 ) 11/20/2024 10:10 AM VOCATIONAL TRAINING TEACHER Body Mass Index 28.12 11/20/2024 10:10 AM VOCATIONAL TRAINING TEACHER Plan of Treatment Health Maintenance Due Date Last Done Comments Depression Screening 1942 Hepatitis B Screening 1960 Pneumococcal vaccine 65+ (1 of 2 - PCV) 1961 Zoster Vaccine (1 of 2) 1961 Well Visit 65+ 2007 Covid-19 Vaccine (4 - 2023-2 5 season) 2024 07/30/2022, 12/03/2020, 10/30/2020 Influenza Vaccine (#1) 2024 7, 08/21/2014, 07/25/2012, Additional history exists Fall Risk Assessment 12/15/2024 12/16/2023 DTaP/Tdap/Td Vaccine (3 - Td or Tdap) 06/04/2030 06/04/2020, 05/06/2016 Abdominal Aortic Aneurysm (A AA) Screen Completed 06/07/2024, 07/23/2022, 2016, Additional history exists Procedures Procedure Name Priority Date/Time Associated Diagnosis Comments EGFR STAT 11/28/2024 8:21 AM VOCATIONAL TRAINING TEACHER Malignant neoplasm of prostate (HCC) DIFFERENTIAL AUTO Routine 11/28/2024 8:2 1 AM VOCATIONAL TRAINING TEACHER Malignant neoplasm of prostate (HCC) LACTATE DEHYDROGENASE Routine 11/28/2024 8:21 AM VOCATIONAL TRAINING TEACHER Malignant neoplasm of prostate (HCC) CBC WITH AUTO DIFFERENTIAL Routine 11/28/2024 8:21 AM VOCATIONAL TRAINING TEACHER Malignant neoplasm of prostate (HCC) COMPREHENSIVE METABOLIC PANEL STAT 11/28/2024 8:21 AM VOCATIONAL TRAINING TEACHER Malignant neoplasm of prostate (HCC) PSA DIAGNOSTIC Routine 11/28/2024 8:21 AM VOCATIONAL TRAINING TEACHER Malignant neoplasm of prostate (HCC) XR CHEST PA LATERAL 2 VIEWS Schedule SUJEY, Read SUJEY (Appt Today, Awaiting Results) 11/20/2024 10:23 AM VOCATIONAL TRAINING TEACHER Flu-like symptoms INFLUENZA A/B, RSV, AND COVID-19 PCR Routine 11/20/2024 10:23 AM VOCATIONAL TRAINING TEACHER Flu-like symptoms CT CHEST ABDOMEN PELVIS W CONTRAST Schedule Routine, Read Routine (OP Routine) 06/07/2024 9:42 AM CDT Malignant neoplasm of prostate (HCC) from Last 3 Months or Most Recently Relevant to Health Maintenance Results * eGFR (11/28/2024 8:21 AM VOCATIONAL TRAINING TEACHER) eGFR 74 >=60 mL/min/1. 73 m2 Comment: [...] of Race in Diagnosing Kidney Disease, JASN 2020). The CKD-EPI equation should not be used for patients with unstable renal function and has not been validated in children and those over 70. Current interpretive data was last reviewed 2021. Blood 11/28/2024 8:21 AM VOCATIONAL TRAINING TEACHER 11/28/2024 8:25 AM VOCATIONAL TRAINING TEACHER us Stefano Erickson MD LAB BLOOD ORDERABLES Final Resul t [facility] Department [place] [address] * (ABNORMAL) Differential, auto (11/28/2024 8:21 AM VOCATIONAL TRAINING TEACHER) Neutrophil abs 6.9(H) 1.5 - 6.5 K/cumm Comment:Testing performed by : [facility] Heme Lab, [address] [place] [phone] Lymphocyte abs 1.0 0.8 - 3.3 K/cumm [facility] Comment:Testing performed by : [facility], [address] [place] [phone] Monocyte abs 0.6 0.2 - 0.8 K/cumm [facility] REYEZ Comment:Testing performed by : [facility], [address] [place] [phone] Eosinophil abs 0.1 0.0 - 0.5 K/cumm [facility] REYEZ Comment:Testing performed by : [facility], [address] [place] [phone] Basophil abs 0.1 0.0 - 0.1 K/cumm CERNER BJ Comment:Testing performed by : [facility], [address] [place] [address] Neutrophil pct 79.0 % [facility] Comment: Interpretive Data Percent cell count reference ranges are not reported, since discordance with absolute values may lead to misinterpretation of CBC data. Current Interpretive Data was last revised on 2018. Testing performed by: [facility], [address] [place] [address] Lymphocyte pct 11.6 % [facility] Comment: Interpretive Data Percent cell count reference ranges are not reported, since discordance with absolute values may lead to misinterpretation of CBC data. Current Interpretive Data was last revised on 2018. Testing performed by: [facility], [address] [place] [address] Monocyte pct 7.4 % [facility] Comment: Interpretive Data Percent cell count reference ranges are not reported, since discordance with absolute values may lead to misinterpretation of CBC data. Current Interpretive Data was last revised on 2018. Testing performed by: [facility], [address] [place], [place] [id number] Eosinophil pct 1.3 % [facility] Comment: Interpretive Data Percent cell count reference ranges are not reported, since discordance with absolute values may lead to misinterpretation of CBC data. Current Interpretive Data was last revised on 2018. Testing performed by: [facility]e [facility], [address] [place] [phone] Basophil pct 0.7 % [facility] Comment: Interpretive Data Percent cell count reference ranges are not reported, since discordance with absolute values may lead to misinterpretation of CBC data. Current Interpretive Data was last revised on 2018. Testing performed by: [facility], [address] [place] [phone] Blood 11/28/2024 8:21 AM VOCATIONAL TRAINING TEACHER 11/28/2024 8:24 AM VOCATIONAL TRAINING TEACHER us Stefano Erickson MD LAB BLOOD ORDERABLES Final Resul t [facility] Department [place] [address] * CBC with auto differential (11/28/2024 8:21 AM VOCATIONAL TRAINING TEACHER) WBC 8.7 3.8 - 9.9 K/cumm Comment:Testing performed by : [facility] Heme Lab, [address] [place] [address] Hgb 14.1 13.0 - 17.5 g/dL CERMI REYEZ Comment:Testing performed by : [facility] Heme Lab, [address] [place] [address] Hct 40.7 38.9 - 50.3 % CERMI REYEZ Comment:Testing performed by : [facility] Lab, [address] [place] [address] Plt 230 150 - 400 K/cumm O[facility]AR REYEZ Comment:Testing performed by : [facility]e Lab, [address] [place] [address] MPV 9.1 6.8 - 10.4 fL CERMI BJ Comment:Testing performed by : [facility] Heme Lab, [address] [place] [address] RBC 4.83 4.30 - 5.80 M/cumm CERMI REYEZ Comment:Testing performed by : [facility]e Lab, [address] [place] [address] MCV 84.3 81.3 - 96.4 fL CERMI BJ Comment:Testing performed by : [facility]e Lab, [address] [place] [address] MCH 29.2 27.1 - 33.3 pg CERMI BJ Comment:Testing performed by : [facility] Lab, [address] [place] [address] MCHC 34.6 32.3 - 35.7 g/dL CERMI BJ Comment:Testing performed by : [facility] Lab, [address] [place] [address] RDW CV 14.5 11.1 - 14.9 % [facility] Comment:Testing performed by : [facility], [address] [place] [phone] NRBC abs 0.00 0.00 - 0.01 K/cumm [facility] Comment:Testing performed by : [facility], [address] [place] [phone] Blood 11/28/2024 8:21 AM VOCATIONAL TRAINING TEACHER 11/28/2024 8:24 AM VOCATIONAL TRAINING TEACHER Stefano Erickson MD LAB BLOOD ORDERABLES Final Resul t Performing Organization Address [facility] de Phone Number [facility] Department [place] [address] * PSA diagnostic (11/28/2024 8:21 AM VOCATIONAL TRAINING TEACHER) PSA-Total <0.02 <=6.20 ng/mL Comment: Interpretive Data [...] last revised 22. Blood 11/28/2024 8:21 AM VOCATIONAL TRAINING TEACHER 11/28/2024 8:25 AM VOCATIONAL TRAINING TEACHER Stefano Erickson MD LAB BLOOD ORDERABLES Final Resul t Performing Organization Address [facility] Co de Phone Number [facility] [place] [address] * Lactate dehydrogenase (LD) (11/28/2024 8:21 AM VOCATIONAL TRAINING TEACHER) Lactate dehydrogenase (LDH) 152 100 - 250 Units/L Blood 11/28/2024 8:21 AM VOCATIONAL TRAINING TEACHER 11/28/2024 8:25 AM VOCATIONAL TRAINING TEACHER us Stefano Erickson MD LAB BLOOD ORDERABLES Final Resul t [facility] Department [place] [address] * Comprehensive metabolic panel (11/28/2024 8:21 AM VOCATIONAL TRAINING TEACHER) Pathologist [facility] Sodium 142 135 - 145 mmol/L Potassium, pl 4.1 3.3 - 4.9 mmol/L [facility] Chloride 107 97 - 110 mmol/L [facility] CO2 27 22 - 32 mmol/L [facility] Anion gap 8 2 - 15 mmol/L [facility] BUN 18 6 - 25 mg/dL [facility] Creatinine 1.01 0.80 - 1.30 mg/dL [facility] Glucose 94 70 - 199 mg/dL [facility] Comment: Interpretive Data Fasting glucose >/= 126 [...] 2022. Calcium 9.4 8.5 - 10.3 mg/dL [facility] Bilirubin, total 0.6 0.1 - 1.2 mg/dL [facility] Protein, pl 7.1 6.5 - 8.5 g/dL [facility] Albumin 4.0 3.5 - 5.0 g/dL [facility] Alk phos 57 40 - 130 Units/L [facility] ALT 9 7 - 55 Units/L [facility] AST 13 10 - 50 Units/L [facility] Blood 11/28/2024 8:21 AM VOCATIONAL TRAINING TEACHER 11/28/2024 8:25 AM VOCATIONAL TRAINING TEACHER Stefano Erickson MD LAB BLOOD ORDERABLES Final Resul t Performing Organization Address City/[facility] Co de Phone Number [facility] Department [place] [address] * Influenza A/B, RSV, and COVID-19 PCR Nasopharyngeal (11/20/2024 10:23 AM VOCATIONAL TRAINING TEACHER) Pathologist [facility] COVID-19 RNA Negative Negative Influenza A RNA Negative Negative [facility] Influenza B RNA Negative Negative [facility] RSV RNA Negative Negative [facility] Comment: Interpretive data: Testing performed by [facility]. This test is performed using the [employer] Xpert Xpress CoV-2/Flu/RSV plus assay. This is a multiplex, real-time reverse transcriptase PCR assay intended for the qualitative detection of nucleic acid from SARS-CoV-2, influenza A, influenza B, and respiratory syncytial virus. This assay has been cleared by the [place] Food and Drug administration. The performance characteristics have been verified by the [facility]. Results must be considered in the clinical context, and a negative result does not rule out infection. Interpretive Data last revised 2023 Nasopharyngeal 11/20/2024 10 :23 AM VOCATIONAL TRAINING TEACHER 11/20/2024 3:22 PM VOCATIONAL TRAINING TEACHER Narrative [facility] - 11/20/2024 4:32 PM VOCATIONAL TRAINING TEACHER Is the Patient experiencing symptoms consistent with COVID?->Yes Osiris Calles NP LAB MICROBIOLOGY - GENERAL ORDCinda JUNE Final Result Performing Organization Address City/[facility]/ZIP Co de Phone Number [facility] RODRIGUE[facility] [address] Department [place] [address] * XR Chest PA Lateral 2 Views (11/20/2024 10:23 AM VOCATIONAL TRAINING TEACHER) Anatomical Region Laterality Modality Body, Chest N/A Digital Radiogra phy 11/20/2024 12:1 5 PM VOCATIONAL TRAINING TEACHER Narrative 11/20/2024 12:17 PM VOCATIONAL TRAINING TEACHER EXAM DESCRIPTION: XR CHEST PA LATERAL 2 [...] signed by Peter GREENE T: Report ID: [id number] Reading Location: [id number] Procedure Note Peter Bailon MD - 11/20/2024 [...] Peter Bailon M.D. RB T: Report ID: [id number] Reading Location: [id number] Osiris Calles NP IMG XR PROCEDURES Final [...] Recently Relevant to Health Maintenance Insurance MEDICARE BLUE CROSS MEDICARE SUPPLEMENT MEDICARE [facility] MEDICARE [facility] MEDICARE SUPPLEMENT Advance Directives For more information, please contact: [phone] * Full Code (Latest Code Status on File) Date Activated Date Inactivated Comments 12/16/2023 2:08 AM 12/16/2023 5:30 PM Care Teams Supervisor Bakery Sanitation Relationship Specialty Start Date End Date Perry Oneal MD [address] [place] [address] PCP - General 05/06/16
[2024-12-21 07:38] VITALS: BP 152/91; PULSE 64; RESP 20; TEMP 35.4; O2SAT 99; BMI 28.2
[2024-12-21] MEDS: LACTATED RINGERS 1,000 ML 150 ML IV CONT (08:04)
--- NOTE | 2024-12-21 08:56 | P.PNAN_ITS ---
Anes - Initial Pre Proc Eval Procedure: Operation Date: 12/21/24 09:00 Proposed Procedures p Colonoscopy - Richie Harris MD Date/Time: 12/21/24 08:56 Surgeon: Richie Harris MD Pre Op Diagnosis: Left lower quadrant abdominal swelling, mass and l Patient Data Age: 84 Gender: M Height: 1.8 m Weight: 91.9 kg Last Vital Signs Temp 95.7 F L 12/21/24 07:38 Pulse 64 12/21/24 07:38 Resp 20 12/21/24 07:38 BP 152/91 H 12/21/24 07:38 Pulse Ox 99 12/21/24 07:38 O2 Del Method Room Air 12/21/24 07:38 Allergies Allergy/AdvReac Type Severity Reaction Status Date / Time adhesive tape Allergy Mild rash Verified 12/21/24 07:43 Home Medications ?Medication ?Instructions ?Recorded ?Confirmed ?Type bicalutamide 50 mg tablet (Casodex) 50 mg PO DAILY 05/03/23 12/21/24 History lorazepam 1 mg tablet 2 mg (2 x 1 mg) PO QHS PRN sleep 09/18/24 12/21/24 Rx #60 tabs bimatoprost 0.01 % eye drops 1 drp ophthalmic (eye) QPM 12/11/24 12/21/24 History (Lumigan) lansoprazole 15 mg capsule,delayed 15 mg PO DAILY 12/13/24 12/21/24 History release (Acid Hotel Maintenance Engineer (lansoprazole)) leuprolide (3 month) 22.5 mg (3 22.5 mg subcut [id number] 12/13/24 12/21/24 History month) subcutaneous syringe Patient hx anesthesia problems: none Family hx anesthesia problems: none Results Review: All pre-operative results and documents have been reviewed as part of the pre- operative evaluation. COUNTS INCLUDE 234 BEDS AT THE [facility] Past Medical History Medical History Diverticulitis Malignant neoplasm of prostate Essential (primary) hypertension Surgical History Surgical History History of right inguinal hernia repair 2003 Family History Family History Father Lung cancer Heart disease Social History Social History Smoking packs per day: 2 Smoking cigarettes per day: 40.0 Years smoked: 25 Smoking pack-years: 50.00 Smoking status: Former smoker Tobacco type: cigarettes Second hand tobacco smoke exposure: No Smoking end date: 09/27/94 Alcohol intake: unknown Alcohol use details: socially Substance use: current Substance use type: sedatives Living arrangements: with family Occupation/Education: occupation Gender identity (if verbalized by the patient): Male Sexual Orientation (if Verbalized by the Patient): Straight or Heterosexual Spiritual care concerns: No Agree to blood products: Yes Anes - Eval Final PreProcedure Day of Procedure 12/21/24 08:56 Patient weight: normal Heart: regular rate and rhythm Lungs: clear to auscultation Airway: Mallampati scale class II Neurological: alert and oriented Last oral intake: >/= 8 hours ASA classification: III Emergent: no Anesthetic plan: proceed Anesthesia type and monitoring: general GIVS and standard monitoring Results Review: All pre-operative results and documents have been reviewed as part of the pre- operative evaluation. Informed Consent: The patient's anesthetic plan and its attendant risks and benefits were discussed with the patient/family/POA. Questions were solicited and answers provided to the satisfaction of the patient/family/POA.
--- NOTE | 2024-12-21 09:48 | PM.IMHP ---
H&P: HPI History of Present Illness Date/Time: 12/21/24 09:48 Chief Complaint: Recurrent diverticulitis Narrative: the patient went approximately 4 weeks ago to the emergency room for an episode of left lower quadrant abdominal pain. Diverticulitis was diagnosed on clinical and CT grounds. He received 2 weeks of antibiotics and is completely asymptomatic right now. Review of Systems Review of Systems: All systems reviewed & are unremarkable except as noted in HPI and below PMFSH Past Medical History Medical History Diverticulitis Malignant neoplasm of prostate Essential (primary) hypertension Surgical History Surgical History History of right inguinal hernia repair 2003 Family History Family History Father Lung cancer Heart disease Social History Social History Smoking packs per day: 2 Smoking cigarettes per day: 40.0 Years smoked: 25 Smoking pack-years: 50.00 Smoking status: Former smoker Tobacco type: cigarettes Second hand tobacco smoke exposure: No Smoking end date: 09/27/94 Alcohol intake: unknown Alcohol use details: socially Substance use: current Substance use type: sedatives Living arrangements: with family Occupation/Education: occupation Gender identity (if verbalized by the patient): Male Sexual Orientation (if Verbalized by the Patient): Straight or Heterosexual Spiritual care concerns: No Agree to blood products: Yes Meds Home Medications and Allergies Home Medications ?Medication ?Instructions ?Recorded ?Confirmed ?Type bicalutamide 50 mg tablet (Casodex) 50 mg PO DAILY 05/03/23 12/21/24 History lorazepam 1 mg tablet 2 mg (2 x 1 mg) PO QHS PRN sleep 09/18/24 12/21/24 Rx #60 tabs bimatoprost 0.01 % eye drops 1 drp ophthalmic (eye) QPM 12/11/24 12/21/24 History (Lumigan) lansoprazole 15 mg capsule,delayed 15 mg PO DAILY 12/13/24 12/21/24 History release (Acid Records Administrator (lansoprazole)) leuprolide (3 month) 22.5 mg (3 22.5 mg subcut [id number] 12/13/24 12/21/24 History month) subcutaneous syringe Allergies Allergy/AdvReac Type Severity Reaction Status Date / Time adhesive tape Allergy Mild rash Verified 12/21/24 07:43 Vital Signs Vital Signs - 24 hr 12/21/24 07:38 Temperature 95.7 F L Pulse Rate 64 Respiratory Rate 20 Blood Pressure 152/91 H Pulse Oximetry 99 Oxygen Delivery Room Air Exam Const: General: cooperative and healthy appearing Resp: Effort & Inspection: normal respiratory effort and able to speak in complete sentences Auscultation: clear to auscultation bilaterally Cardio: Rate: regular rate Rhythm: regular rhythm GI: Inspection: normal to inspection GI Palp: No No hepatosplenomegaly present Auscultation: normal bowel sounds Rectal Exam: deferred Skin: General skin exam: normal color Psych: Appearance: grossly normal Mental Status: mental status grossly normal Assessment and Plan Assessment and plan (1) Abdominal mass, left lower quadrant: Code(s): R19.04 - Left lower quadrant abdominal swelling, mass and lump Status: Acute Assessment and Plan: The patient most likely is recovering from acute diverticulitis, however a mass cannot be excluded. Will do a colonoscopy but if there is evidence of inflammation or difficulty examining the sigmoid area, will not proceed to pursue a cecal intubation.
--- NOTE | 2024-12-21 10:32 | SUR.OPER ---
one cecal polyp unretrieved MD wright aware
[2024-12-21 10:48] VITALS: BP 123/77; PULSE 54; RESP 22; O2SAT 98
[2024-12-21 10:58] VITALS: BP 131/78; PULSE 53; RESP 17; O2SAT 98
[2024-12-21 11:08] VITALS: BP 131/78; PULSE 53; RESP 14; O2SAT 96
== END 2024-12-21 11:24 | disposition home or self-care (01) ==
PROVIDERS: PCP Family Medicine Adolescent Medicine; Referring Provider Nurse Practitioner Family; Visit Provider Internal Medicine Gastroenterology
PROC: 0DJD8ZZ Inspection of Lower Intestinal Tract, Via Natural or Artificial Opening Endoscopic (ICD-10-PCS; CPT 45378; principal; 2024-12-21 09:00)
DX: Z09 Encounter for follow-up examination after completed treatment for conditions other than malignant neoplasm (principal); K57.30 Diverticulosis of large intestine without perforation or abscess without bleeding; D12.2 Benign neoplasm of ascending colon; K63.5 Polyp of colon; I10 Essential (primary) hypertension; Z98.890 Other specified postprocedural states; Z87.891 Personal history of nicotine dependence; Z87.19 Personal history of other diseases of the digestive system; Z85.46 Personal history of malignant neoplasm of prostate; Z80.1 Family history of malignant neoplasm of trachea, bronchus and lung; Z82.49 Family history of ischemic heart disease and other diseases of the circulatory system
CPT/HCPCS: 45385; 88305; J2003; J2704; J7120